=== PATIENT | female | born 1985 | race African-American/Black ===

== ENCOUNTER 2023-07-01 09:57 | Emergency (ER) | payer MEDICAID ==
[~2023-07-01] VITALS: Ht 167.6 cm; Wt 86.0 kg
[2023-07-01 09:59] VITALS: O2SAT 100
[2023-07-01 10:37] VITALS: BP 124/60; PULSE 71; RESP 16; TEMP 98.7
== END 2023-07-01 10:30 | disposition home or self-care (01) ==
LOC: ER 10:08
DX: F14.10 Cocaine abuse, uncomplicated (principal); R55 Syncope and collapse; J45.909 Unspecified asthma, uncomplicated; Z98.890 Other specified postprocedural states
CPT/HCPCS: 99283

== ENCOUNTER 2024-02-04 03:12 | Emergency (ER) | payer MEDICAID ==
[~2024-02-04] VITALS: Ht 160 cm; Wt 130.0 kg
[2024-02-04 03:14] VITALS: BP 146/88; PULSE 84; RESP 16; O2SAT 99
[2024-02-04] MEDS ORDERED: CEPH500C2 MT (03:23)
[2024-02-04 03:50] VITALS: TEMP 98.1
[2024-02-04] MEDS: ACETAMINOPHEN 325MG TABLET PO ONE (03:50)
[2024-02-04] MEDS: CEPHALEXIN 250MG CAPSULE PO ONE (03:50)
== END 2024-02-04 04:02 | disposition home or self-care (01) ==
LOC: ER 03:12
DX: L03.115 Cellulitis of right lower limb (principal); F41.9 Anxiety disorder, unspecified; F14.90 Cocaine use, unspecified, uncomplicated; J45.909 Unspecified asthma, uncomplicated; Z98.890 Other specified postprocedural states
CPT/HCPCS: 99283

== ENCOUNTER 2024-08-07 20:57 | Emergency (ER) | payer MEDICAID, OTHER ==
[~2024-08-07] VITALS: Ht 167.6 cm; Wt 87.0 kg
[~2024-08-07 20:57] MED LIST: CEPH500C2 MT
[2024-08-07 21:02] VITALS: TEMP 98.2; O2SAT 99
[2024-08-07 21:45] VITALS: BP 145/95; PULSE 66; RESP 15
[2024-08-07] MEDS: IBUPROFEN 600MG TABLET PO ONE (21:45)
[2024-08-08] MEDS ORDERED: NAPR-1176 MT ×2 (00:12→01:03)
== END 2024-08-08 01:12 | disposition home or self-care (01) ==
LOC: ER 21:16
DX: M25.511 Pain in right shoulder (principal); F31.9 Bipolar disorder, unspecified; F14.10 Cocaine abuse, uncomplicated
CPT/HCPCS: 73030; 99283; A4565

== ENCOUNTER 2025-05-14 17:04 | Emergency (ER) | payer MEDICAID ==
[~2025-05-14] VITALS: Ht 175.3 cm; Wt 84.0 kg
[~2025-05-14 17:04] MED LIST changes: +NAPR-1176 MT
[2025-05-14 17:16] VITALS: O2SAT 100
[2025-05-14 18:37] LABS: CLARITY URINE CLOUDY (CLEAR); GLUCOSE URINE NEGATIVE (NEGATIVE); KETONES URINE NEGATIVE (NEGATIVE); NITRITE URINE POSITIVE (NEGATIVE); OCCULT BLOOD URINE 2+ (NEGATIVE); PH URINE >=9.0 (4.5-8.0); PROTEIN URINE 2+ (NEGATIVE); SPECIFIC GRAVITY URINE 1.016 (1.005-1.030)
[2025-05-14 18:38] LABS: LEUKOCYTE ESTERASE URINE 2+ (NEGATIVE); UROBILINOGEN URINE 1.0 E.U./dL (0.2-1.0)
[2025-05-14 18:48] LABS: COLOR URINE STRAW (YELLOW)
[2025-05-14 18:49] LABS: BACTERIA URINE TRACE; MUCUS URINE 1+ /lpf (< = 2+); RBC URINE 0-2 /hpf (0-2); RENAL EPITHELIAL CELLS URINE 1+ /lpf; SQUAMOUS EPITHELIAL CELL URINE RARE /lpf (RARE/1+); WBC URINE 50-100 /hpf (0-2)
[2025-05-14] MEDS: CEFTRIAXONE 2GM/50ML 50 ML IV ONE (20:06)
[2025-05-14] MEDS: SODIUM CHLORIDE 0.9% 1,000 ML IV ONE (20:06)
[2025-05-14] MEDS: ONDANSETRON HCL 4MG/2ML INJ IV ONE (20:06)
[2025-05-14] MEDS: MORPHINE SULFATE 4 MG/ML INJ (FOR IV/IM USE) IV ONE (20:07)
[2025-05-14 21:20] LABS: BASOPHILS % 0.3 % (0.0-2.0); EOSINOPHILS % 0.0 % (0.0-5.0); HEMATOCRIT. 39.4 % (36.0-48.0); HEMOGLOBIN. 13.3 g/dL (12.0-16.0); LYMPHOCYTES % 13.6 % (20.0-50.0); MEAN PLATELET VOLUME 8.5 fl (7.4-10.4); MONOCYTES % 9.4 % (2.0-8.0); NEUTROPHILS % 76.7 % (40.0-76.0); PLATELET 270 x1000/uL (130-400); RED BLOOD CELL COUNT 4.31 mill/uL (4.2-5.4); RED CELL DISTRIBUTION WIDTH 13.8 % (11.6-14.6)
[2025-05-14 21:35] LABS: CREATININE 0.9 mg/dL (0.6-1.0); UREA NITROGEN BLOOD 10 mg/dL (9-23)
[2025-05-14 21:37] LABS: ASPARTATE AMINOTRANSFERASE 16 IU/L (<34); BILIRUBIN DIRECT 0.2 mg/dL (<=3.0); BILIRUBIN TOTAL 0.6 mg/dL (0.1-1.0); PROTEIN TOTAL 7.2 g/dL (6.0-8.3)
[2025-05-14] MEDS ORDERED: CEPH500T MT (22:41)
[2025-05-14] MEDS ORDERED: IBUP-2030 MT (22:41)
[2025-05-14 22:59] VITALS: BP 137/81; PULSE 72; RESP 18; TEMP 36.8; O2SAT 99
[2025-05-15] MEDS ORDERED: IOHEXOL-300 100 ML BOTTLE ONE (00:11)
== END 2025-05-14 23:02 | disposition home or self-care (01) ==
LOC: ER 17:04 → CMPBEDREQ 23:07
DX: N12 Tubulo-interstitial nephritis, not specified as acute or chronic (principal); F31.9 Bipolar disorder, unspecified; F14.90 Cocaine use, unspecified, uncomplicated; F41.9 Anxiety disorder, unspecified; Z79.899 Other long term (current) drug therapy
CPT/HCPCS: 99285; 74177; 96365; 96375; 80076; 80048; 81003; 81025; 83690; 83735; 85025; 87040; 87086; 87186; 87077; 36415; Q9967 ×2; J0696; J2405; J2270; J7030